=== PATIENT | female | born 1930 | race Asian ===

== ENCOUNTER 2018-01-17 14:15 | Emergency (ER) | payer MEDICARE, OTHER ==
[2018-01-17] MEDS: ACETAMINOPHEN 325 MG TAB PO (14:56)
== END 2018-01-17 17:17 | disposition home or self-care (01) ==
LOC: E/R 14:15
DX: R07.81 Pleurodynia (principal); E03.9 Hypothyroidism, unspecified
CPT/HCPCS: 71045; 99283-25